=== PATIENT | female | born 1965 | race Caucasian/White ===

== ENCOUNTER 2017-06-08 08:47 | Day surgery (SDC) | payer BC ==
[2017-06-08] MEDS ORDERED: Lactated Ringers 1,000 ML IV SCH (09:15)
[2017-06-08] MEDS ORDERED: Midazolam 1 MG/ML 2 ML SDV IV ONE (10:15)
[2017-06-08] MEDS ORDERED: Propofol 200 MG/20 ML SDV IV ONE (10:15)
[2017-06-08] MEDS ORDERED: Lidocaine 2% 100 MG/5 ML Syringe IVPUSH ONE (10:15)
--- NOTE | 2017-06-08 10:39 | PCM.OPNOTE ---
- General Post-Op/Procedure Note Date of Surgery/Procedure: 06/08/17 Operative Procedure(s): egd with biopsy Findings: mild gastritis distal esophagitis Pre Op Diagnosis: dysphagia and sx gerd Post-Op Diagnosis: Same Anesthesia Technique: MAC Primary Surgeon: Tapan Chaidez Anesthesia Provider: Zakiya Keller Pathology: stomach and distal esophagus Complications: None Condition: Good Free Text/Narrative:: see dictation
[2017-06-08 11:20] VITALS: BP 120/70
--- NOTE | 2017-06-08 12:39 | OR ---
DATE OF OPERATION: 06/08/2017 SURGEON: Tapan Chaidez MD PROCEDURE PERFORMED: EGD with cold forceps biopsy. PREOPERATIVE DIAGNOSIS: Symptomatic gastroesophageal reflux disease. POSTOPERATIVE DIAGNOSIS: Mild gastritis and esophagitis. INDICATIONS FOR PROCEDURE: This is a 51-year-old, white female, who presents with the above-mentioned complaints. She was offered and accepted an EGD. DESCRIPTION OF OPERATION: After an excellent IV sedation was administered, the bite block was inserted. The flexible endoscope was passed without difficulty down the patient's esophagus into the stomach. The stomach was then deflated. The scope was passed through the pylorus to the second portion of duodenum and slowly withdrawn. The following findings were noted. Duodenum unremarkable. Stomach demonstrates mild gastritis, several biopsies were taken. Distal esophagus, mild erythema. Biopsies were taken. The remainder of the esophageal exam was unremarkable. Stomach was deflated, scope was removed. The patient tolerated the procedure well and was taken to recovery room in good condition. /[id number] SRINI/CHRISTINA
== END 2017-06-08 11:51 | disposition home or self-care (01) ==
LOC: FB.SDS 08:47
PROVIDERS: ATTEND Surgery
DX: K20.8 Other esophagitis (principal); K29.50 Unspecified chronic gastritis without bleeding
CPT/HCPCS: 43239; 81025; 88305; 88313; 88342; J2250; J2704; J7120